=== PATIENT | male | born 1970 | race Caucasian/White ===

== ENCOUNTER 2020-06-12 18:19 | Emergency (ER) | payer OTHER ==
[~2020-06-12] VITALS: Ht 180.3 cm; Wt 74.8 kg
[2020-06-12 18:35] VITALS: BP 132/81
--- NOTE | 2020-06-12 18:57 | Emergency Room Report ---
History of Present Illness General Chief Complaint: Skin Rash/Abscess Source: Patient Present Illness HPI 50-year-old male history here complaining of an abscess on dorsum of left hand. Patient reports that he is homeless and he noticed that after he was taking outside he is on oral diuretics secondary to a spider bite. Denies fever and chills, chest pain, shortness of breath, headache and dizziness. Has been range of motion of the affected extremity. No tightness noted. Is neurovascularly intact. Is up-to-date with tetanus shot. 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 Patient History Past Medical History: see triage record Past Surgical History: none Pertinent Family History: none Immunizations: UTD Reviewed Nursing Documentation: PMH: Agreed; PSxH: Agreed Nursing Documentation-PMH Past Medical History: No Stated History Review of Systems All Other Systems: negative except mentioned in HPI Physical Exam Vital Signs Date Time Temp Pulse Resp B/P (MAP) Pulse Ox O2 Delivery O2 Flow Rate FiO2 06/12/20 18:24 97.9 103 18 134/86 (102) 98 Room Air Sp02 EP Interpretation: reviewed, normal General Appearance: no apparent distress, alert, GCS 15, non-toxic Head: normocephalic, atraumatic Eyes: bilateral eye normal inspection, bilateral eye PERRL ENT: hearing grossly normal, normal pharynx, no angioedema, normal voice Neck: full range of motion, supple/symm/no masses Respiratory: chest non-tender, lungs clear, normal breath sounds, speaking full sentences Cardiovascular #1: regular rate, rhythm, no edema Cardiovascular #2: 2+ radial (R), 2+ radial (L) Gastrointestinal: normal bowel sounds, non tender, soft, non-distended, no guarding, no rebound Musculoskeletal: back normal, non-tender Neurologic: alert, motor strength/tone normal, oriented x3, sensory intact, responsive, speech normal Psychiatric: judgement/insight normal, memory normal, mood/affect normal, no suicidal/homicidal ideation Skin: other - Abscess dorsum of right hand Lymphatic: no adenopathy Procedures Incision and Drainage Incision and Drainage : Consent: Verbal Site: Right hand Blade Size: 11 I & D Procedure: betadine prep Wound Location: upper extremity - Right hand Wound's Depth, Shape: superficial Wound Explored: clean Anesthesia: 1% Lidocaine Volume Anesthetic (ccs): 5 Patient Tolerated: Well Complications: None Medical Decision Making PA Attestation All diagnoses and treatment plans were reviewed and discussed with my supervising physician Dr. Mayen Homeless Attestation The treating physician has assessed and agrees that patient is medically stable for outpatient dispositon Diagnostic Impression: Primary Impression: Abscess, hand ER Course 50-year-old male history here complaining of an abscess on dorsum of left hand. Patient reports that he is homeless and he noticed that after he was taking outside he is on oral diuretics secondary to a spider bite. Denies fever and chills, chest pain, shortness of breath, headache and dizziness. Has been range of motion of the affected extremity. No tightness noted. Is neurovascularly intact. Is up-to-date with tetanus shot. Ddx considered but are not limited to : Cellulitis, superficial infection, abscess Vital signs: are WNL, pt. is afebrile H&PE are most consistent with: Abscess right hand ORDERS: Bactrim DS, Keflex, ibuprofen ED INTERVENTIONS: Incision and drainage, wound care DISCHARGE: At this time pt. is stable for d/c to home. Will provide printed patient care instructions, and any necessary prescriptions. Care plan and follow up instructions have been discussed with the patient prior to discharge. Take medication as directed, follow-up with primary care provider in 2 to 3 days, if worsening symptom return to emergency room Last Vital Signs Date Time Temp Pulse Resp B/P (MAP) Pulse Ox O2 Delivery O2 Flow Rate FiO2 06/12/20 18:35 97.9 76 20 132/81 97 Room Air Disposition: HOME, SELF-CARE Condition: Stable Scripts Ibuprofen* (MOTRIN*) 600 Mg Tablet 600 MG ORAL Q6H PRN for For Pain, #30 TAB 0 Refills Prov: Lenny Zheng 06/12/20 Cephalexin* (KEFLEX*) 500 Mg Capsule 500 MG ORAL EVERY 6 HOURS for 7 Days, #28 CAP Prov: Lenny Zheng 06/12/20 Trimethoprim/Sulfamethoxazole 160/800* (BACTRIM DS TABLET*) 1 Each Tablet 1 TAB ORAL TWICE A DAY for 7 Days, #14 TAB Prov: Lenny Zheng 06/12/20 Patient Instructions: Abscess Additional Instructions: Take medication as directed, follow-up with primary care provider, if worsening symptoms return to the emergency room Lenny Zheng Jun 12, 2020 18:57
[2020-06-12] MEDS ORDERED: CEPHALEXIN500 MG ORAL (18:59)
[2020-06-12] MEDS ORDERED: BACTRIM DS TAB1 EAC1 ORAL (18:59)
[2020-06-12] MEDS ORDERED: IBUPROFEN600 M1 ORAL (18:59)
[2020-06-12 19:09] VITALS: BP 132/81
== END 2020-06-12 19:10 | disposition home or self-care (01) ==
LOC: EMR 18:54
DX: L02.512 Cutaneous abscess of left hand (principal); Z59.0 Homelessness
CPT/HCPCS: 10060; Z7502; 99282